=== PATIENT | female | born 1970 | race Caucasian/White ===

== ENCOUNTER 2018-12-21 17:13 | Inpatient (IN) | payer OTHER ==
[~2018-12-21] VITALS: Ht 165.1 cm; Wt 65.7 kg
--- NOTE | 2018-12-21 17:25 | NUR ---
blood sugar check in triage 101
--- NOTE | 2018-12-21 17:34 | NUR ---
REPORTS PTS SUGAR WAS GREATER THAN 300 THIS MORNING. PT WAS GIVEN INSULIN AT HOME. FAMILY REPORTS PT HAS BEEN CONFUSED SINCE 4:30 AM. FAMILY REPORTS URINARY FREQUENCY. PT IS ALERT TO PERSON AND PLACE. MD AT BEDSIDE.
[2018-12-21] MEDS ORDERED: SODIUM CHLORIDE FLUSH 10ML SYR IVF ONE ×2 (18:00→20:00)
[2018-12-21] MEDS ORDERED: THIAMINE 100MG TABLET PO ONE (18:00)
[2018-12-21] MEDS ORDERED: SODIUM CHLORIDE 0.9% 1,000ML IVBOLUS ONE ×2 (18:00→20:00)
[2018-12-21 18:06] LABS: ALANINE AMINOTRANSFERASE 52 U/L (12-78); ALBUMIN 3.9 g/dL (3.4-5.0); ANION GAP 13 mmol/L (5-15); CALCIUM 8.6 mg/dL (8.5-10.1); CHLORIDE 109 mmol/L (98-107); CREATININE 1.03 mg/dL (0.55-1.02)
[2018-12-21 18:07] LABS: SALICYLATE LEVEL < 1.7 mg/dL (2.8-20.0)
[2018-12-21 18:13] LABS: ALKALINE PHOSPHATASE 77 U/L (45-117); BASOPHILS # (AUTO) 0.02 x10^3/uL (0-0.1); BASOPHILS % (AUTO) 0 % (0-1); BILIRUBIN,TOTAL 0.7 mg/dL (0.2-1.0); EOSINOPHILS # (AUTO) 0.02 x10^3/uL (0-0.4); EOSINOPHILS % (AUTO) 0 % (1-7); LYMPHOCYTES % (AUTO) 26 % (22-44); MD NO; MEAN CORPUSCULAR HEMOGLOBIN 36.7 pg (27.0-34.8); MEAN CORPUSCULAR VOLUME 101.7 fL (80-100); MEAN PLATELET VOLUME 8.9 fL (7.4-10.4); MONOCYTES # (AUTO) 0.42 x10^3/uL (0.2-0.8); MONOCYTES % (AUTO) 6 % (2-9); NEUTROPHILS # (AUTO) 4.91 x10^3/uL (1.8-6.8); NEUTROPHILS % (AUTO) 68 % (42-75); PLATELET COUNT 233 x10^3/uL (130-400); RED BLOOD COUNT 3.41 x10^6/uL (3.82-5.3); RED CELL DISTRIBUTION WIDTH 12.6 % (9.6-15.2); TOTAL PROTEIN 7.1 g/dL (6.4-8.2)
--- NOTE | 2018-12-21 18:17 | NUR ---
MEDICATION REQUESTED FROM PHARMACY.
[2018-12-21 18:18] LABS: ACETAMINOPHEN < 2 mcg/mL (10-30)
--- NOTE | 2018-12-21 18:21 | NUR ---
PT TAKEN TO CT.
--- NOTE | 2018-12-21 18:57 | NUR ---
RECEIVED BS REPORT FORM JANELLE GUTIERREZ TO ASSUME PT. CARE. PT. JUST PROVIDED URINE SAMPLE VIA BS COMMODE. COLLECTED AND SENT TO LAB. CALL LIGHT IN REACH. ALL MONITORS IN PLACE. PT. A&O TO SELF ONLY; DOESN'T KNOW BIRTHDAY OR ANY OTHER ORIENTATION QUESTIONS. DR. WANG HAD JUST BEEN IN TO DISCUSS PLAN FOR PROBABLE ADMISSION WITH AT BS. ALL SAFETY MEASURES OBSERVED.
--- NOTE | 2018-12-21 18:59 | NUR ---
REPORT GIVEN TO DERECK LUIS.
[2018-12-21 19:13] LABS: MICROSCOPIC NOT IND
[2018-12-21 19:25] LABS: CULTURE INDICATED? NO
[2018-12-21 19:26] LABS: AMPHETAMINE SCREEN, URINE Negative (Negative); BARBITURATE SCREEN, URINE Negative (Negative); BENZODIAZEPINE SCREEN, URINE Negative (Negative); CANNABINOID SCREEN, URINE Negative (Negative); COCAINE SCREEN, URINE Negative (Negative); METHADONE SCREEN, URINE Negative (Negative); OPIATE SCREEN, URINE Negative (Negative)
[2018-12-21] MEDS ORDERED: SODIUM CHLORIDE 0.9% 1,000 ML IV ONE (19:31)
--- NOTE | 2018-12-21 20:06 | NUR ---
[facility] AT TO EVAL PT. FOR ADMISSION.
--- NOTE | 2018-12-21 20:20 | NUR ---
REPORT TO SEN LUIS FOR ROOM [id number]
[2018-12-21 20:30] LABS: ACETONE, SERUM Negative (Negative)
[2018-12-21] MEDS ORDERED: SODIUM CHLORIDE FLUSH 10ML SYR IVF PRN (20:30)
[2018-12-21] MEDS ORDERED: SODIUM CHLORIDE 0.9% 1,000 ML IV SCH (20:45)
[2018-12-21] MEDS ORDERED: ONDANSETRON ODT 4 MG PO PRN (21:00)
[2018-12-21] MEDS ORDERED: LORazepam 2 MG/ML, 1ML IVPush PRN (21:00)
[2018-12-21] MEDS ORDERED: ACETAMINOPHEN 325 MG TABLET PO PRN (21:00)
[2018-12-21] MEDS: INSULIN LISPRO 100 UNITS/ML, PEN SQ-INSULIN SCH (21:00)
[2018-12-21] MEDS ORDERED: ONDANSETRON 2MG/ML, 2ML IVPush PRN (21:00)
[2018-12-21] MEDS: ENOXAPARIN 40 MG/0.4 ML SQ SCH (21:34)
[2018-12-21] MEDS: LACTULOSE 10 GM/15 ML UDC PO SCH (21:34)
[2018-12-21 21:39] VITALS: BP 123/81
[2018-12-21] MEDS: THIAMINE 200 MG, MVI ADULT 10 ML, FOLIC ACID 1 MG in D5%-0.9% NACL 1,000 ML IV SCH (22:00)
[2018-12-22 02:01] VITALS: BP 115/79
[2018-12-22 05:45] LABS: CHLORIDE 116 mmol/L (98-107)
[2018-12-22 05:59] LABS: ALANINE AMINOTRANSFERASE 47 U/L (12-78); ALBUMIN 2.6 g/dL (3.4-5.0); ALKALINE PHOSPHATASE 63 U/L (45-117); ANION GAP 8 mmol/L (5-15); CALCIUM 7.5 mg/dL (8.5-10.1); CREATININE 0.96 mg/dL (0.55-1.02); TOTAL PROTEIN 5.2 g/dL (6.4-8.2)
[2018-12-22 06:15] LABS: MEAN CORPUSCULAR HEMOGLOBIN 33.3 pg (27.0-34.8); MEAN CORPUSCULAR HGB CONC 33.9 g/dL (32.4-35.8); MEAN CORPUSCULAR VOLUME 98.3 fL (80-100); PLATELET COUNT 169 x10^3/uL (130-400); RED BLOOD COUNT 2.94 x10^6/uL (3.82-5.3)
[2018-12-22 06:42] LABS: MD YES
[2018-12-22 06:43] LABS: EOS#(MANUAL) 0.05 x10^3/uL (0.0-0.4); EOS% (MANUAL) 1 % (1-7); LYMPH#(MANUAL) 2.39 x10^3/uL (1-3.4); LYMPHS% (MANUAL) 46 % (22-44); MONOS#(MANUAL) 0.31 x10^3/uL (0.3-2.7); MONOS% (MANUAL) 6 % (2-9); SEG#(MANUAL) 2.44 x10^3/uL (1.8-6.8); SEGS% (MANUAL) 47 % (42-75)
[2018-12-22 06:44] LABS: <PLATELET ESTIMATE> ADEQUATE; <PLT MORPHOLOGY> NORMAL PLT MORPH; <RBC MORPHOLOGY> NORMAL
[2018-12-22] MEDS: INSULIN LISPRO 100 UNITS/ML, PEN SQ-INSULIN SCH ×4 (07:00→21:33)
[2018-12-22 08:00] VITALS: BP 136/84
[2018-12-22] MEDS ORDERED: SUMATRIPTAN 50 MG TABLET PO PRN (08:00)
[2018-12-22] MEDS: LACTULOSE 10 GM/15 ML UDC PO SCH ×2 (08:03→21:33)
[2018-12-22] MEDS: SODIUM BICARBONATE 8.4% 100 MEQ in DEXTROSE 5% 1,000 ML IV SCH ×2 (08:43→16:32)
[2018-12-22] MEDS ORDERED: POTA20TA6 PO (09:54)
[2018-12-22] MEDS ORDERED: ESCI10TA PO (09:54)
[2018-12-22] MEDS ORDERED: POTA10TA11 PO (09:54)
[2018-12-22] MEDS ORDERED: CELE200C PO (09:54)
[2018-12-22] MEDS ORDERED: ATOR10TA9 PO (09:54)
[2018-12-22] MEDS ORDERED: FLUT9.9S NS (09:54)
[2018-12-22] MEDS ORDERED: OMEP20CA14 PO (09:54)
[2018-12-22] MEDS ORDERED: MONT10TA9 PO (09:54)
[2018-12-22] MEDS ORDERED: DIPH25TA65 PO (09:54)
[2018-12-22] MEDS ORDERED: TOPI50CA5 PO (09:54)
[2018-12-22] MEDS ORDERED: TRAM50TA2 PO (09:54)
[2018-12-22] MEDS ORDERED: LISI40TA PO (09:54)
[2018-12-22 13:04] VITALS: BP 126/81
[2018-12-22 19:56] VITALS: BP 104/74
[2018-12-22] MEDS: THIAMINE 200 MG, MVI ADULT 10 ML, FOLIC ACID 1 MG in D5%-0.9% NACL 1,000 ML IV SCH (21:32)
[2018-12-22] MEDS: ENOXAPARIN 40 MG/0.4 ML SQ SCH (21:33)
[2018-12-23] MEDS ORDERED: DIPHENHYDRAMINE 50 MG CAPSULE PO PRN (00:30)
[2018-12-23 02:10] VITALS: BP 104/67
[2018-12-23] MEDS: SODIUM BICARBONATE 8.4% 100 MEQ in DEXTROSE 5% 1,000 ML IV SCH ×2 (03:03→10:20)
[2018-12-23 06:33] VITALS: BP 105/68
[2018-12-23] MEDS: INSULIN LISPRO 100 UNITS/ML, PEN SQ-INSULIN SCH ×2 (08:37→11:54)
[2018-12-23] MEDS: LACTULOSE 10 GM/15 ML UDC PO SCH (08:38)
== END 2018-12-23 12:30 | disposition home or self-care (01) | DRG 948 ==
LOC: ED 19:22 → SUATTDRO 19:55 → 4WST 20:08 → 3NE 12-22 12:56 → DCLOUNGE 12-23 12:30
PROVIDERS: ADMIT Hospitalist; ATTEND Hospitalist
PROC: 0T9B70Z Drainage of Bladder with Drainage Device, Via Natural or Artificial Opening (ICD-10-PCS; principal; 2018-12-21)
DX: R41.82 Altered mental status, unspecified (principal); E87.2 Acidosis; E11.9 Type 2 diabetes mellitus without complications; E78.5 Hyperlipidemia, unspecified; E86.0 Dehydration; F10.20 Alcohol dependence, uncomplicated; I10 Essential (primary) hypertension; D75.89 Other specified diseases of blood and blood-forming organs; Z23 Encounter for immunization; Z90.49 Acquired absence of other specified parts of digestive tract; Z88.8 Allergy status to other drugs, medicaments and biological substances
CPT/HCPCS: 36415; 99285; J7042; 70450; 71045; 80053; 80307; 80329; 81003; 82010; 82140; 82800; 82962; 83735; 84100; 84443; 85025; 90656; 93005; G0378; J1650; J3411; J7070; 92522-GN; G0480; J1815; J7030